=== PATIENT | female | born 1995 | race African-American/Black ===

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

== ENCOUNTER 2017-04-26 19:44 | Emergency (ER) | payer OTHER ==
--- NOTE | 2017-04-26 21:16 | NUR ---
CALLED FOR TRIAGE X2; INFORMED PT LEFT
== END 2017-04-26 21:18 | disposition left against medical advice (07) ==
LOC: ER 19:46
DX: Z53.21 Procedure and treatment not carried out due to patient leaving prior to being seen by health care provider (principal)

== ENCOUNTER → 2017-08-02 | Emergency (ER) | payer OTHER ==
[~2017-08-02] VITALS: Ht 185.4 cm; Wt 95.3 kg
[2017-08-03 00:22] VITALS: BP 117/70
== END | disposition home or self-care (01) ==
LOC: ER 23:58
DX: J02.8 Acute pharyngitis due to other specified organisms (principal); B97.89 Other viral agents as the cause of diseases classified elsewhere; F32.9 Major depressive disorder, single episode, unspecified; Z88.6 Allergy status to analgesic agent; Z79.899 Other long term (current) drug therapy
CPT/HCPCS: 86403-TC; 87070-TC; A4606; Z7610

== ENCOUNTER 2018-01-10 00:23 | Emergency (ER) | payer OTHER ==
[~2018-01-10] VITALS: Ht 185.4 cm; Wt 89.8 kg
[2018-01-10 00:43] VITALS: BP 125/68
--- NOTE | 2018-01-10 01:02 | NUR ---
pt called to room, no response.
--- NOTE | 2018-01-10 01:15 | NUR ---
pt called to room, no response.
== END 2018-01-10 01:15 | disposition left against medical advice (07) ==
LOC: ER 00:23
DX: Z53.21 Procedure and treatment not carried out due to patient leaving prior to being seen by health care provider (principal); F41.9 Anxiety disorder, unspecified
CPT/HCPCS: A4606; Z7610